=== PATIENT | female | born 1975 | race Caucasian/White ===

== ENCOUNTER → 2018-04-20 17:04 | Outpatient (CLI) | payer BC, SELFPAY ==
[2018-04-20 18:00] LABS: Absolute Lymphocyte Count 2.21 X10^3/ul (0.83-4.51); Absolute Neutrophil Count 3.9 X10^3/uL (2.0-7.7); Basophil# 0.02 X10^3/uL; Basophil% 0.3 % (0-1); Eosinophil# 0.14 X10^3/uL; Eosinophils% 2.1 % (0-5); Hematocrit 39.1 % (37-47); Hemoglobin 12.4 g/dl (12.0-15.0); Lymphocyte # 2.21 X10^3/ul (4.0); Lymphocyte % 32.8 % (19-41); Mean Corp Hgb Conc 31.7 g/gl (32-36); Mean Corpuscular Hgb 27.6 pg (27.0-32.0); Mean Corpuscular Volume 86.9 fL (81-99); Mean Platelet Vol. 9.8 fl (6.2-12.0); Monocyte# 0.49 X10^3/uL; Monocyte% 7.3 % (0-10); Neutrophil # 3.87 X10^3/uL (2.7-7.7); Neutrophil % 57.5 % (47-70); Platelet Count 297 K/mm3 (150-450); RBC Distribution Width CV 14.3 % (11.6-14.6); RBC Distribution Width SD 45.4 fl (35.1-43.9); White Blood Count 6.7 K/mm3 (4.4-11.0)
[2018-04-20 18:13] LABS: POSITIVE COUNT NO; POSITIVE DIFFERENTIAL NO; POSITIVE MORPHOLOGY NO
[2018-04-20 19:10] LABS: ALB/GLOB Ratio 0.7 RATIO (0.9-2.4); AST(SGOT) 16 U/L (15-37); Alanine Aminotransfer ALT/SGPT 24 U/L (13-56); Albumin, Serum 3.5 g/dL (3.2-5.0); Alkaline Phosphatase 70 U/L (45-117); Anion Gap 7 (5-15); BUN 15 mg/dL (7-18); Calcium,Total 8.4 mg/dL (8.5-10.1); Chloride 104 mmol/L (98-107); Creatinine, Serum 0.79 mg/dL (0.55-1.02); EST Glomerular Filtration Rate 85 mL/min (>60); Est Glom Filt Rate - Afr Amer 103 mL/min (>60); Free T3 2.5 pg/mL (2.18-3.98); Globulin 4.7 g/dL (2.2-4.2); Glucose 79 mg/dL (74-106); Potassium 3.6 mmol/L (3.5-5.1); Protein, Total 8.2 g/dL (6.4-8.2); Sodium Level 137 mmol/L (136-145); T3 Uptake 30 % (30-39); T4 Free Direct 0.88 ng/dL (0.76-1.46); Thyroid Stim Hormone (TSH) 2.06 uIU/mL (0.358-3.74)
== END ==
PROVIDERS: Nurse Practitioner Adult Health; Family Provider Family Medicine; PCP Family Medicine; Visit Provider Family Medicine
DX: R53.83 Other fatigue (principal)
CPT/HCPCS: 36415; 80053; 84432; 84439; 84443; 84479; 84481; 85025; 86800

== ENCOUNTER → 2018-05-29 09:09 | Outpatient (CLI) | payer BC, SELFPAY ==
--- NOTE | 2018-05-29 | BI_ITS ---
MAMMOGRAPHY - BILATERAL SCREENING REASON FOR EXAM: Female, 42 years old. Routine annual screening examination. PERTINENT HISTORY: Grandmother with breast cancer. TECHNIQUE: Digital bilateral breast chas (3D mammographic acquisition) in the CC and MLO projections. 2-D mediolateral oblique (MLO) and craniocaudad (CC) views of both breasts were obtained. CAD: Full Field Digital Mammography with Computer Added Detection was performed. COMPARISON: Comparison is made with prior study dated April 16, 2017 and July 22, 2013. FINDINGS: Breast Composition: The breasts are almost entirely fatty. There are no dominant masses or suspicious calcifications. No other significant abnormalities are identified. There has been no significant change since the prior study. BI/SCREENING MAMM (CAD), BILAT IMPRESSION: Stable bilateral screening mammogram. Yearly follow-up mammogram recommended. (A) ASSESSMENT CATEGORY: BIRADS Category 1: Negative. A letter regarding these results will be sent to the patient by the facility within 30 days. Approximately 10% of breast cancers are not detected by mammography. A normal mammogram should not delay biopsy of a clinically suspicious abnormality. [id number] Electronically Signed: Jered Muniz MD at 9:45 EST Tel [phone], Service support ,
--- OUTSIDE RECORDS SUMMARY | 2018-07-23 19:15 | XMS RPT_ITS ---
:1975 Author Organization [facility] Care Team Providers Name Role Phone Venkat Jose Attending Unavailable Venkat Jose Primary Care Unavailable Destini Dee Attending Unavailable Destini Dee Referring Unavailable Venkat Jose Primary Care Unavailable PROBLEMS PROBLEMS DATE TYPE CONDITION / CODE ATTENDING STATUS SOURCE 05/11/2018 Unknown R53.83 - Other Venkat Jose Active [place] [facility] R53.83(ICD-10) Hospital Repository PROCEDURES PROCEDURES No Procedure Records FoundRESULTS RESULTS SCREENING MAMM (CAD), Observed: 05/29/2018 Status: F Source: [place] BIL 9:12 AM [facility] Imaging Services [address] [place] [address] SCREENING MAMM (CAD), BILAT MR#: [id number] Acct: [id number] Name: VICKI CASTELLON Rep #: [id number] : 1975 F 42 From: Jered Muniz MD PCP: Venkat Jose MD Status: REG CLI Study: SCREENING MAMM (CAD), BILAT Date of Exam: 05/29/18 Exam# [id number] Ordering Dr: Destini Dee MD MAMMOGRAPHY - BILATERAL SCREENING REASON FOR EXAM: Female, 42 years old. Routine annual screening examination. PERTINENT HISTORY: Grandmother with breast cancer. TECHNIQUE: Digital bilateral breast chas (3D mammographic acquisition) in the CC and MLO projections. 2-D mediolateral oblique (MLO) and craniocaudad (CC) views of both breasts were obtained. CAD: Full Field Digital Mammography with Computer Added Detection was performed. COMPARISON: Comparison is made with prior study dated April 16, 2017 and July 22, 2013. FINDINGS: Breast Composition: The breasts are almost entirely fatty. There are no dominant masses or suspicious calcifications. No other significant abnormalities are identified. There has been no significant change since the prior study. BI/SCREENING MAMM (CAD), BILAT IMPRESSION: Stable bilateral screening mammogram. Yearly follow-up mammogram recommended. (A) ASSESSMENT CATEGORY: BIRADS Category 1: Negative. A letter regarding these results will be sent to the patient by the facility within 30 days. Approximately 10% of breast cancers are not detected by mammography. A normal mammogram should not delay biopsy of a clinically suspicious abnormality. [id number] Electronically Signed: Jered Muniz MD at 9:45 EST Tel [phone], Service support , CC: Destini Dee MD; Venkat Jose MD [facility] Supervisor: Signed THYROGLOBULIN W/ANTI-TG Collected: 04/20/2018 Status: F Source: [place] AB 5:10 PM [facility] TYPE CODE TESTS RESULT OUT OF RANGE REFERENCE UNITS LAB L3300.7025 Normal ANTI-TG AB Result Comment: TEST RESULT LIMITS TgAb+Thyroglobulin,LAURA or ALANNA Thyroglobulin Antibody <1.0 IU/mL 0.0 - 0.9 Thyroglobulin Antibody measured by Scar Bolivar Methodology. Thyroglobulin by LAURA 38.5 ng/mL 1.5 - 38.5 Comment: According to the National Academy of Clinical Biochemistry, the reference interval for Thyroglobulin (TG) should be related to euthyroid patients and not for patients who underwent thyroidectomy. TG reference intervals for these patients depend on the residual mass of the thyroid tissue left after surgery. Establishing a post-operative baseline is recommended. The assay limit of quantitation is 0.1 ng/mL Thyroglobulin measured by Scar Boliv[facility] Immunometric Assay [facility] ORIGINAL REPORT ON FILE IN LAB CONTAINS ADDITIONAL TEST SITE INFORMATION. Performed By: #### L3300.6820 #### [facility] (refer to report for specific site) refer to report for address and phone number MISCELLANEOUS LAB Collected: 04/20/2018 Status: F Source: [place] PROCEDURE 5:10 PM [facility] Order Comment: Comments: [id number] LIVER KIDNEY MICROSOMAL ANTIBODIES Test(s) Ordered: [id number] LIVER KIDNEY MICROSOMAL ANTIBODIES TYPE CODE TESTS RESULT OUT OF RANGE REFERENCE UNITS LAB L801.1541 Normal [facility] [place] Result Comment: TEST RESULT LIMITS Liver-Kidney Microsomal Ab <1.0 Units 0.0 - 20.0 Negative 0.0 - 20.0 Equivocal 20.1 - 24.9 Positive >24.9 LKM type 1 antibodies are detected in patients with autoimmune hepatitis type 2 and in up to 8% of patients with chronic HCV infection. [facility]FOR[facility] AT [facility]. ORIGINAL REPORT ON FILE IN LAB CONTAINS ADDITIONAL TEST SITE INFORMATION. Performed By: #### L801.1541 #### [facility] [place], [id number] CBC W/DIFF, AUTOMATED Collected: 04/20/2018 Status: F Source: [place] 5:06 PM [facility] TYPE CODE TESTS RESULT OUT OF RANGE REFERENCE UNITS LAB L100.1000 4.4-11.0 K/mm3 Normal WBC 6.7 LAB L100.1200 4.2-5.4 M/mm3 Normal RBC 4.50 LAB L100.1300 12.0-15.0 g/dl Normal HGB 12.4 LAB L100.1400 37-47 % Normal HCT 39.1 LAB L100.1500 81-99 fL Normal MCV 86.9 LAB L100.1600 27.0-32.0 pg Normal MCH 27.6 LAB L100.1700 32-36 g/gl Low MCHC 31.7 LAB L100.1810 11.6-14.6 % Normal RDW CV 14.3 LAB L100.1820 35.1-43.9 fl High RDW SD 45.4 LAB L100.1900 150-450 K/mm3 Normal PLT 297 LAB L100.2000 6.2-12.0 fl Normal MPV 9.8 LAB L100.2100 47-70 % Normal NEUT% 57.5 LAB L100.2200 19-41 % Normal LY% 32.8 LAB L100.2300 0-10 % Normal MONO% 7.3 LAB L100.2400 0-5 % Normal EO% 2.1 LAB L100.2500 0-1 % Normal BASO% 0.3 LAB L100.2550 0.0-0.9 % Normal IM GRAN % 0.000 Result Comment: IG% - Immature Granulocytes (promyelocytes, myelocytes and metamyelocytes) > 1% indicates that a LEFT SHIFT is Present. LAB L100.2620 2.0-7.7 X10 3/uL Normal Absolute Neut 3.9 LAB L100.2720 0.83-4.51 X10 3/ul Normal Absolute Lymph 2.21 Performed By: #### L100.0100, L500.4050, L501.71899, L501.9110, L501.9520, L506.0400 #### [facility] [address] [place], [address] COMPREHENSIVE METABOLIC Collected: 04/20/2018 Status: F Source: [place] GOMEZ 5:06 PM [facility] Order Comment: Comments: [id number] LIVER KIDNEY MICROSOMAL ANTIBODIES TYPE CODE TESTS RESULT OUT OF RANGE REFERENCE UNITS LAB L501.0100 74-106 mg/dL Normal GLU 79 Result Comment: Please note revised GLUCOSE reference range effective 2017. LAB L501.1000 7-18 mg/dL Normal BUN 15 LAB L501.1100 0.55-1.02 mg/dL Normal CREAT,SERUM 0.79 Result Comment: The validity of the calculated GFR AND GFRAA in patients over 70 years has not been determined. Clinical correlation is essential. LAB L501.1110 >60 mL/min Normal EST GFR 85 Result Comment: Non- GFR Calc LAB L501.1115 >60 mL/min Normal EST GFR - AA 103 Result Comment: GFR Calc LAB L501.1300 10-20 RATIO Normal BUN/CRE 19.0 LAB L501.1500 6.4-8.2 g/dL T Normal PROT 8.2 LAB L501.1800 3.2-5.0 g/dL Normal ALB 3.5 LAB L501.1950 2.2-4.2 g/dL High GLOB 4.7 LAB L501.2000 0.9-2.4 RATIO Low A/G 0.7 LAB L501.2200 8.5-10.1 mg/dL Low CA 8.4 LAB L501.4100 15-37 U/L Normal AST 16 LAB L501.4305 45-117 U/L Normal ALK P 70 LAB L501.4405 13-56 U/L Normal ALT 24 LAB L501.4600 0.20-1.00 mg/dL T Normal BILI 0.20 LAB L501.5300 136-145 mmol/L NA Normal 137 LAB L501.5600 3.5-5.1 mmol/L K Normal 3.6 LAB L501.5900 98-107 mmol/L CL Normal 104 LAB L501.6100 21.0-32.0 mmol/L Normal CO2 26.0 LAB L501.6200 5-15 Normal GAP 7 Performed By: #### L100.0100, L500.4050, L501.71642, L501.9195, L501.9520, L506.0400 #### [facility] [address] [place], [place], [id number] FREE T3 Collected: 04/20/2018 Status: F Source: [place] 5:06 PM [facility] Order Comment: Comments: [id number] LIVER KIDNEY MICROSOMAL ANTIBODIES TYPE CODE TESTS RESULT OUT OF RANGE REFERENCE UNITS LAB L501.14769 2.18-3.98 pg/mL Normal FREE T3 2.5 Performed By: #### L100.0100, L500.4050, L501.15087, L501.9195, L501.9520, L506.0400 #### [facility] [place], [place], [id number] T3 UPTAKE Collected: 04/20/2018 Status: F Source: [place] 5:06 PM [facility] Order Comment: Comments: [id number] LIVER KIDNEY MICROSOMAL ANTIBODIES TYPE CODE TESTS RESULT OUT OF RANGE REFERENCE UNITS LAB L501.9210 30-39 % 30 Normal T3 UPTAKE LAB L501.9410 1.4-4.5 Test Normal T7 (FTI) not performed Performed By: #### L100.0100, L500.4050, L501.36195, L501.9195, L501.9520, L506.0400 #### [facility] [place], [place], [address] THYROID STIM HORMONE Collected: 04/20/2018 Status: F Source: [place] (TSH) 5:06 PM [facility] Order Comment: Comments: [id number] LIVER KIDNEY MICROSOMAL ANTIBODIES TYPE CODE TESTS RESULT OUT OF RANGE REFERENCE UNITS LAB L501.9520 0.358-3.74 uIU/mL Normal TSH 2.06 Performed By: #### L100.0100, L500.4050, L501.31545, L501.9195, L501.9520, L506.0400 #### [facility] [address] [facility] [place], [address] T4 FREE DIRECT Collected: 04/20/2018 Status: F Source: [place] 5:06 PM [facility] Order Comment: Comments: [id number] LIVER KIDNEY MICROSOMAL ANTIBODIES TYPE CODE TESTS RESULT OUT OF RANGE REFERENCE UNITS LAB L506.0400 0.76-1.46 ng/dL Normal T4 FREE 0.88 DIRECT Performed By: #### L100.0100, L500.4050, L501.19802, L501.9195, L501.9520, L506.0400 #### [place] [facility] [address] [place], [address] PROGRESS Observed: 11/19/2017 Status: COMPLETED Source: [place] 6:38 PM [facility] [place] REPOS[facility]ORY HNO ID: [id number] Author: Alvaro Medel) [place] Service: (none) Author Type: Physician Newspaper Photojournalist Type: Progress Notes Filed: 11/19/2017 6:46 PM Note Text: Subjective HPI Pt presents with a dog bite. She was trying to separate her two Corgi dogs from fighting when one inadvertently bit her. Her dogs are up to date on immunizations. She states the one dog actually killed the other one. She has wound on her right index finger. She is not sure when her last tetnus was.. Review of Systems Musculoskeletal: Dog bite right index finger All other systems reviewed and are negative. PAST MEDICAL HISTORY Diagnosis Date - Depression Current Outpatient Prescriptions: amoxicillin-clavulanic acid (AUGMENTIN) 875-125 mg per tablet Take 1 tablet by mouth twice daily for 10 days. Disp: 20 tablet Rfl: 0 naproxen (NAPROSYN) 500 mg tablet Take 500 mg by mouth twice daily with meals. Disp: Rfl: No current facility-administered medications for this visit. PAST SURGICAL HISTORY Procedure Laterality Date - DELIVERY ONLY 2010 , low cervical (x2) - EXTRACTION ERUPTED TOOTH/EXR - PAST SURGICAL HISTORY OF mole excised from left axilla - TUBAL LIGATION,,ABD OR VAG. 2010 FAMILY HISTORY Problem Relation Age of Onset - Heart Father - hydrocephalus [Other] [OTHER] Mother Social History Substance Use Topics - Smoking status: Never Smoker - Smokeless tobacco: Never Used - Alcohol use Yes Comment: rare 1 per month BP 118/62 Pulse 78 Temp 37.4 ?C (99.4 ?F) (Left Tympanic) Resp 16 Wt 130.2 kg (287 lb) BMI 43.00 kg/m? Objective Physical Exam Constitutional: She is oriented to person, place, and time and well-developed, well-nourished, and in no distress. HENT: Head: Normocephalic and atraumatic. Cardiovascular: Normal rate, regular rhythm and normal heart sounds. Pulmonary/Chest: Effort normal and breath sounds normal. Musculoskeletal: Exam of the right index finger reveals a puncture wound on the burgess side of the finger on the middle phalanx and three puncture wounds on the middle phalanx on the dorsum. 2 of these are on the middle phalanx and one on the distal phalanx. No active bleeding. She has FROM of the finger against resistance. Neurological: She is alert and oriented to person, place, and time. Skin: Skin is warm and dry. Psychiatric: Judgment normal. tearful Nursing note and vitals reviewed. ASSESSMENT/PLAN: 1. Dog bite, initial encounter - ICD9: 879.8, E906.0, ICD10: W54.0XXA Pt wounds were cleansed with hibacleanse and normal saline irrigation. Covered with bacitracin and nonstick dressing. Her tdap was updated. I will start her on Augmentin and she was given warning signs for infection. She also filled out a Dog bite form. Discussed with patient concerning symptoms to go to the emergency department or follow up here. Pt agreeable with this plan. Alvaro Godwin PA-C CNOV Observed: 11/19/2017 Status: COMPLETED Source: [place] 5:45 PM [facility] Office Visit ([facility]) VICKI CASTELLON ([id number]) 1975 F Date Time Provider Department 11/19/17 5:45 PM ALVARO GODWIN) [facility] During your visit today, we recorded the following information about you: Temperature Pulse Respiration Blood pressure 99.4 degrees 78/minute 16/minute 118/62 Weight 130.2 kg Alvaro Godwin PA-C 11/19/2017 6:46 PM Signed Subjective HPI Pt presents with a dog bite. She was trying to separate her two Corgi dogs from fighting when one inadvertently bit her. Her dogs are up to date on immunizations. She states the one dog actually killed the other one. She has wound on her right index finger. She is not sure when her last tetnus was.. Review of Systems Musculoskeletal: Dog bite right index finger All other systems reviewed and are negative. PAST MEDICAL HISTORY Diagnosis Date - Depression Current Outpatient Prescriptions: amoxicillin-clavulanic acid (AUGMENTIN) 875-125 mg per tablet Take 1 tablet by mouth twice daily for 10 days. Disp: 20 tablet Rfl: 0 naproxen (NAPROSYN) 500 mg tablet Take 500 mg by mouth twice daily with meals. Disp: Rfl: No current facility-administered medications for this visit. PAST SURGICAL HISTORY Procedure Laterality Date - DELIVERY ONLY 2009 , low cervical (x2) - EXTRACTION ERUPTED TOOTH/EXR - PAST SURGICAL HISTORY OF mole excised from left axilla - TUBAL LIGATION,,ABD OR VAG. 2010 FAMILY HISTORY Problem Relation Age of Onset - Heart Father - hydrocephalus [Other] [OTHER] Mother Social History Substance Use Topics - Smoking status: Never Smoker - Smokeless tobacco: Never Used - Alcohol use Yes Comment: rare 1 per month BP 118/62 Pulse 78 Temp 37.4 ?C (99.4 ?F) (Left Tympanic) Resp 16 Wt 130.2 kg (287 lb) BMI 43.00 kg/m? Objective Physical Exam Constitutional: She is oriented to person, place, and time and well-developed, well-nourished, and in no distress. HENT: Head: Normocephalic and atraumatic. Cardiovascular: Normal rate, regular rhythm and normal heart sounds. Pulmonary/Chest: Effort normal and breath sounds normal. Musculoskeletal: Exam of the right index finger reveals a puncture wound on the burgess side of the finger on the middle phalanx and three puncture wounds on the middle phalanx on the dorsum. 2 of these are on the middle phalanx and one on the distal phalanx. No active bleeding. She has FROM of the finger against resistance. Neurological: She is alert and oriented to person, place, and time. Skin: Skin is warm and dry. Psychiatric: Judgment normal. tearful Nursing note and vitals reviewed. ASSESSMENT/PLAN: 1. Dog bite, initial encounter - ICD9: 879.8, E906.0, ICD10: W54.0XXA Pt wounds were cleansed with hibacleanse and normal saline irrigation. Covered with bacitracin and nonstick dressing. Her tdap was updated. I will start her on Augmentin and she was given warning signs for infection. She also filled out a Dog bite form. Discussed with patient concerning symptoms to go to the emergency department or follow up here. Pt agreeable with this plan. Alvaro Godwin PA-C Referring Provider: SELF [200] Allergies As of Date: 11/19/2017 Noted Allergy Reaction ANCEF (CEFAZOLIN SODIUM) 03/04/2012 4 - Hives Date Reviewed: 11/19/2017 Reviewed by: Amber De Santiago LPN - Fully Assessed Reason for Visit: Dog Bite [28164] Cmt: x 1 hour right hand swelling, pain and limited range of motion after dog bite right hand Primary Visit Diagnosis:Dog bite, initial encounter [W54.0XXA] Order(s):amoxicillin-clavulanic acid (AUGMENTIN) 875-125 mg per tabletTake 1 tablet by mouth twice daily for 10 days.Disp: 20 tabletRfl: 0 TDAP VACCINE AGE 7+ IM [[id number]] Order #: [id number] Prescriptions as of 11/19/2017 Sig: AMOXICILLIN 875 MG-POTASSIUM * Take 1 tablet by mouth twice * NAPROXEN 500 MG TABLET Take 500 mg by mouth twice da* Problem List As Of Date 11/19/2017 Noted Resolved Decreased libido [R68.82] INVALID FOR* Obesity, unspecified [E66.9] INVALID FOR* Other malaise and fatigue [R53.81, R53.83] INVALID FOR* Anxiety state, unspecified [F41.1] INVALID FOR* Premenstrual tension syndromes [N94.3] INVALID FOR* Depressive disorder, not elsewhere classified [*INVALID FOR* Prescriptions ordered this encounter Disp Refills Start End AMOXICILLIN 875 MG-POTASSIUM CLAVULA* 20 t* 0 11/19/2017 11/29/2017 Route: ORAL Sig: Take 1 tablet by mouth twice daily for 10 days. Encounter Status:Closed by ALVARO GODWIN PA-C on 11/19/17 ALLERGIES ALLERGIES DATE TYPE / CODE NAME / CODE REACTION SEVERITY SOURCE 11/01/2016 Drug cefazolin/[id number] Swelling Unknown [facility] Allergy/416 4841(RXNORM) Hospital 369099(SNOM Repository ED CT) 03/04/2012 DRUG CEFAZOLIN SODIUM HIVES [facility] INGREDI/[address] 169074(SNOM Repository ED CT) ENCOUNTERS ENCOUNTERS ADMIT/DISCHARGE ACCOUNT ADMITTING ENCOUNTER LOCATION SOURCE NUMBER CLASS 05/29/2018 [id number] [facility] ing:OPBI Repository 04/20/2018 [id number] [facility] ing:MFPLAB Repository 11/19/2017/11/21/[id number] Repository PAYERS PAYERS ENCOUNTER GUARANTOR PAYER SUBSCRIBER SOURCE 05/29/2018 VICKI C Primary VICKI C [place] [id number] Insurance:ANTHEMPolic SANDERSDOB: Community CEDAR y [place]: [id number] [id number] Repository 48956Yqf: (330) Date:3023-07-07OL [phone] () [address] [place] [address] 53099LU: 05/29/2018 Secondary NOT GIVENUNK [place] Insurance:SELF PAY [facility] Number: Effective Repository Date:2018-04-19 04/20/2018 VICKI C Primary VICKI C [place] [id number] Insurance:ANTHEMPolic SANDERSDOB: Community CEDAR y [place]: [id number] [id number] Repository [address]Vvr: (330) Date:8684-53-35SY [phone] () [id number] [place] [address] 14398LL: 04/20/2018 Secondary NOT GIVENUNK [place] Insurance:SELF PAY [facility] Number: Effective Repository Date:2018-04-20
== END ==
PROVIDERS: Family Provider Family Medicine; PCP Family Medicine; Referring Provider Obstetrics & Gynecology; Visit Provider Obstetrics & Gynecology
DX: Z12.31 Encounter for screening mammogram for malignant neoplasm of breast (principal)
CPT/HCPCS: 77063; 77067

== ENCOUNTER → 2018-08-03 17:45 | Outpatient (CLI) | payer BC, SELFPAY ==
--- NOTE | 2018-08-03 18:15 | MRI_ITS ---
STUDY: MRI BRAIN WITHOUT CONTRAST REASON FOR EXAM: Female, 42 years old. Chronic increasing headaches TECHNIQUE: Standardized multiplanar fat and water weighted pulse sequences were obtained. COMPARISON: None. FINDINGS: Normal size of the ventricles and extra-axial spaces for the patient's age. Normal white matter tracts of the supratentorial brain. Normal bilateral basal ganglia. Normal thalami. There is no extra-axial fluid accumulation. Normal flow voids within the major intracranial circulation suggesting patency by spin echo criteria. Normal sella turcica, pituitary gland, infundibular stalk, optic chiasm and hypothalamus. Normal tectal plate and pineal gland. Normal midbrain, destinee and medulla. Normal cerebellum. Normal basal cisterns. Normal bilateral temporal bones. Normal bilateral internal auditory canals. There are punctate foci of signal dropout in the inferior frontal lobes on the gradient echo weighted imaging sequence which may be consistent with old hemorrhagic contusions. However would recommend correlation with clinical history No demonstrated orbital abnormality, within the constraints of a routine brain study. Normal visualized paranasal sinuses. Normal calvarium and skull base. Normal visualized soft tissue structures. Normal visualized upper cervical spine. MRI/Brain without Contrast IMPRESSION: Findings which may be consistent with old posttraumatic hemorrhagic contusions within the inferior frontal lobes however clinical correlation is recommended. Otherwise normal unenhanced MRI of the brain. Electronically Signed: Kelvin Garnett MD at 23:40 EST , Service support ,
== END ==
PROVIDERS: Family Provider Family Medicine; PCP Family Medicine; Referring Provider Psychiatry & Neurology Neurology; Visit Provider Psychiatry & Neurology Neurology
DX: R51 Headache (principal)
CPT/HCPCS: 70551

== ENCOUNTER → 2019-01-10 09:42 | Outpatient (CLI) | payer BC, SELFPAY ==
[2016-11-01 14:08] VITALS: BMI 43.5
== END ==
PROVIDERS: Family Provider Family Medicine; PCP Family Medicine; Visit Provider Obstetrics & Gynecology
DX: Z12.4 Encounter for screening for malignant neoplasm of cervix (principal)

== ENCOUNTER → 2019-01-22 10:05 | Outpatient (CLI) | payer BC, SELFPAY | PROVIDERS: Family Provider Family Medicine; PCP Family Medicine; Referring Provider Family Medicine; Visit Provider Family Medicine | DX: M54.5 Low back pain (principal) | CPT/HCPCS: 87086; 87088 ==

== ENCOUNTER → 2019-04-11 13:37 | Outpatient (CLI) | payer BC, SELFPAY ==
[2019-04-11 15:25] LABS: Chlamydia Trachomatis by PCR Negative (Negative); Neisserai gonorrhoeae by PCR Negative (Negative); Probe Check PASS; Sample Adequacy Control PASS; Specimen Processing Control PASS
== END ==
PROVIDERS: Obstetrics & Gynecology; Family Provider Family Medicine; PCP Family Medicine
DX: Z11.3 Encounter for screening for infections with a predominantly sexual mode of transmission (principal)
CPT/HCPCS: 87491; 87591

== ENCOUNTER → 2019-12-05 14:44 | Outpatient (CLI) | payer BC, SELFPAY ==
[2016-11-01 14:08] VITALS: BMI 43.5
[2019-12-06 09:43] LABS: Hepatitis B Surface Antibody Non-Reactive; Rubella IgG 75.3 IU/mL
[2019-12-07 23:57] LABS: Rubeola IgG Ab > 300.0 AU/mL (Immune >16.4); V-Zoster IgG (Immunity) 1853 index (Immune >165)
== END ==
PROVIDERS: PCP Family Medicine; Referring Provider Family Medicine; Visit Provider Family Medicine
DX: Z78.9 Other specified health status (principal)
CPT/HCPCS: 36415; 86706; 86735; 86762; 86765; 86787

== ENCOUNTER → 2020-01-03 | Outpatient (CLI) | payer BC, SELFPAY ==
[2016-11-01 14:08] VITALS: BMI 43.5
== END | disposition home or self-care (01) ==
LOC: LABSPEC 14:15
PROVIDERS: PCP Family Medicine; Visit Provider Family Medicine Hospice and Palliative Medicine
DX: Z11.59 Encounter for screening for other viral diseases (principal)
CPT/HCPCS: 87635; G2023; U0003

== ENCOUNTER → 2020-04-10 17:39 | Outpatient (CLI) | payer BC, SELFPAY ==
[2020-04-02 12:54] VITALS: BMI 32.7
--- NOTE | 2020-04-10 17:45 | CT_ITS ---
STUDY: CT PELVIS WITH CONTRAST REASON FOR EXAM: Female, 44 years old. LLQ PAIN, LUMP ABOVE SCAR, SHARP STABBING PAIN, HX 2 C-SECTIONS RADIATION DOSAGE (If Supplied By Facility): CTDIvol = ( 28.21 ) mGy, DLP = ( 1063.88 ) mGycm TECHNIQUE: Transaxial imaging of the pelvis was performed with oral contrast. Oral and amp; IV Readi-CAT and amp; 100mL Isovue-370 was administered intravenously. Individualized dose optimization techniques were used for this CT. COMPARISON: None. FINDINGS: The palpable abnormality corresponds to a 2.3 cm x 1.7 cm slightly spiculated nodule in the deep subcutaneous tissue overlying the left anterior pelvis. This may represent a focal area of scarring. A biopsy may be indicated for further evaluation. Normal urinary bladder. There is evidence of bilateral tubal ligation. Normal visualized small intestine. Normal visualized colon. There is no pelvic fluid. There is no pelvic lymphadenopathy or mass lesion. Normal visualized pelvic arteries. There are degenerative changes of the visualized lumbar spine. CT/Pelvis WITH IV Contrast IMPRESSION: The palpable abnormality corresponds to a 2.3 cm x 1.7 cm slightly spiculated nodule in the deep subcutaneous tissues overlying the left anterior pelvis. A biopsy may be indicated for further evaluation. Electronically Signed: Jered Muniz, at 9:33 EDT , Service support ,
== END ==
LOC: CT 17:40
PROVIDERS: PCP Family Medicine; Referring Provider Surgery; Visit Provider Surgery
DX: R10.32 Left lower quadrant pain (principal); R19.04 Left lower quadrant abdominal swelling, mass and lump
CPT/HCPCS: 72193; Q9967

== ENCOUNTER → 2020-09-18 10:01 | Outpatient (CLI) | payer BC, SELFPAY ==
[2020-04-03 07:52] VITALS: BMI 43.5
--- NOTE | 2020-09-18 10:04 | BI_ITS ---
MAMMOGRAPHY - BILATERAL SCREENING REASON FOR EXAM: Female, 45 years old. Routine annual screening examination. PERTINENT HISTORY: Grandmother with breast cancer. Aunt with breast cancer. Left lateral breast tenderness. TECHNIQUE: Digital bilateral breast roman (3D mammographic acquisition) in the CC and MLO projections. 2-D mediolateral oblique (MLO) and craniocaudad (CC) views of both breasts were obtained. CAD: Full Field Digital Mammography with Computer Added Detection was performed. COMPARISON: Comparison is made with prior study dated 05/29/2018 and 04/16/2017. FINDINGS: Breast Composition: The breasts are almost entirely fatty. There are no dominant masses or suspicious calcifications. Stable small benign-appearing bilateral axillary lymph nodes. No other significant abnormalities are identified. There has been no significant change since the prior study. BI/SCRN MAMM (CAD)W/ROMAN BILAT IMPRESSION: Stable bilateral screening mammogram. Yearly follow-up mammogram recommended. (A) ASSESSMENT CATEGORY: BIRADS Category 2: Benign. A letter regarding these results will be sent to the patient by the facility within 30 days. Approximately 10% of breast cancers are not detected by mammography. A normal mammogram should not delay biopsy of a clinically suspicious abnormality. [id number] Electronically Signed: Jered Muniz MD at 12:25 EDT , Service support ,
== END ==
PROVIDERS: PCP Family Medicine; Referring Provider Obstetrics & Gynecology; Visit Provider Obstetrics & Gynecology
DX: Z12.31 Encounter for screening mammogram for malignant neoplasm of breast (principal)
CPT/HCPCS: 77063; 77067

== ENCOUNTER → 2020-10-09 11:27 | Outpatient (CLI) | payer BC, SELFPAY ==
[2020-04-03 07:52] VITALS: BMI 43.5
[2020-10-09 15:35] LABS: Absolute Lymphocyte Count 1.59 X10^3/uL (0.83-4.51); Absolute Neutrophil Count 2.3 X10^3/uL (2.0-7.7); Basophil# 0.02 X10^3/uL; Basophil% 0.5 % (0-1); Eosinophil# 0.04 X10^3/uL; Eosinophils% 0.9 % (0-5); Hemoglobin 13.6 g/dL (12.0-15.0); Lymphocyte # 1.59 X10^3/ul (4.0); Lymphocyte % 37.5 % (19-41); Mean Corp Hgb Conc 32.4 g/dL (32-36); Mean Corpuscular Hgb 30.8 pg (27.0-32.0); Mean Platelet Vol. 10.6 fl (6.2-12.0); Monocyte# 0.33 X10^3/uL; Monocyte% 7.8 % (0-10); NRBC Flagged by Analyzer 0 % (0-5); Neutrophil # 2.25 X10^3/uL (2.7-7.7); Neutrophil % 53.1 % (47-70); Platelet Count 240 K/mm3 (150-450); RBC Distribution Width SD 42.1 fl (35.1-43.9); Red Blood Count 4.42 M/mm3 (4.2-5.4); White Blood Count 4.2 K/mm3 (4.4-11.0)
[2020-10-09 15:57] LABS: ALB/GLOB Ratio 0.9 RATIO (0.9-2.4); AST(SGOT) 17 U/L (15-37); Alanine Aminotransfer ALT/SGPT 22 U/L (13-56); Albumin, Serum 3.5 g/dL (3.2-5.0); Alkaline Phosphatase 53 U/L (45-117); Anion Gap 6 (5-15); BUN 14 mg/dL (7-18); BUN/Creat Ratio 15.5 RATIO (10-20); Calcium,Total 8.6 mg/dL (8.5-10.1); Chloride 108 mmol/L (98-107); EST Glomerular Filtration Rate 72 mL/min (>60); Est Glom Filt Rate - Afr Amer 87 mL/min (>60); Free T3 2.5 pg/mL (2.18-3.98); Glucose 70 mg/dL (74-106); Potassium 3.4 mmol/L (3.5-5.1); Protein, Total 7.5 g/dL (6.4-8.2); Sodium Level 139 mmol/L (136-145); T4 Free Direct 0.97 ng/dL (0.76-1.46); Thyroid Stim Hormone (TSH) 1.61 uIU/mL (0.358-3.74)
== END ==
PROVIDERS: PCP Family Medicine; Referring Provider Family Medicine; Visit Provider Registered Nurse
DX: F41.9 Anxiety disorder, unspecified (principal)
CPT/HCPCS: 36415; 80053; 82306; 84439; 84443; 84481; 85025

== ENCOUNTER 2020-12-21 10:51 | Day surgery (SDC) | payer BC, SELFPAY ==
[2020-04-03 07:52] VITALS: BMI 43.5
[2020-12-21] VITALS (7 sets, daily range): BP systolic 84–108; BP diastolic 53–77; PULSE 42–73; RESP 14–16; TEMP 36.5–37.3; O2SAT 98–100; BMI 34.5
--- NOTE | 2020-12-21 | MISC_PTH ---
PATIENT: VICKI CASTELLON LOC: [facility] [place] U#:[id number] AGE/SX: 45/F ROOM: RE12/21/[address]: Dr. Walker Marie MD : 1975 BED: DIS: 12/21/2020 SPEC #: [id number] RECD: 12/21/20 14:12 STATUS: PANDA REDarling #: [id number] MARQUIS: 12/21/20 00:[address]: Walker Marie DEPT: SURGICAL PATHOLOGY RECD BY: Vadim Cast ENTERED: 12/24/20 08:03 SP TYPE: MISC OTHR DR: Dr. Venkat Jose MD Tissues: Endometrial cavity Procedures: Surgery Specimen Level IV HEADER OPERATION: Excision endometrioma, left lower abdominal PRE-OP DIAGNOSIS: Endometrioma TISSUE SUBMITTED: Endometrioma MICROSCOPIC DIAGNOSIS Left lower abdominal endometrioma, excision: Consistent with endometriosis/endometrioma. LEXI:clementine 12/25/2020 MICROSCOPIC DESCRIPTION Slides are reviewed. GROSS DESCRIPTION Received in fixative is one container labeled with the patient's name and designated endometrioma. The specimen consists of an irregular fragment of yellow fatty tissue measuring 5 x 4 x 4 cm. Serial sections reveal fatty cut surfaces that are interrupted by white, fibrous streaks with punctate hemorrhage. Hall Worker sections are submitted in four cassettes. / AM:clementine 12/24/20 TC:5 CPT: 38791
[2020-12-21 11:15] LABS: Internal QC Validated? YES +Cl - CLEAR BKGD
[2020-12-21 11:19] LABS: Pregnancy, Urine Negative Negative
[2020-12-21] MEDS: Lactated Ringers 1,000 ML 100 ML IV ×2 (12:13→14:34)
[2020-12-21] MEDS: Bupivacaine Mpf 0.5% 30 ML VIAL (13:00)
--- NOTE | 2020-12-21 13:30 | PCM.OPRPT ---
Problems Associated Problem List Diagnoses (1) Endometrioma: Report of Operation Date of Procedure: 12/21/20 Pre-Operative Diagnosis: Subcutaneous endometrioma Post-Operative Diagnosis: Same Surgery/Procedure Performed:: Excision of a 5 cm subcutaneous endometrioma Surgeon: Walker Marie Type of Anesthesia: General Anesthesiologist: Michael Ford Specimen's removed: 5 cm subcutaneous endometrioma Estimated Blood Loss (mL): < 5 cc Description of Procedure: Patient was brought into the operating room. Placed in the supine position. Under excellent general endotracheal ovation abdomen was sterilely prepped and draped in the usual fashion. I used the ultrasound identified exactly where this was. I injected local in the skin. Incision was made. Electrocautery was used to remove the subcutaneous endometrioma. It was all above the fascia I did not get into the fascia whatsoever. Use electrocautery for getting the stasis. I brought the wound together with a deep layer of 2-0 Vicryl deep dermals of 3-0 Vicryl in a running 4-0 Monocryl. Steri-Strips were applied sterile dressings were applied and the patient tolerated the procedure well. Admit VTE Documentation VTE Present on Admission: No VTE Mechan Device Prophylaxis: SCD's VTE Pharm Prophylaxis ordered?: No Reason prophylaxis not ordered:: Treatment Not Indicated
--- NOTE | 2020-12-21 13:37 | DCINST_ITS ---
Discharge Instructions Follow Up Care Test Results: Test results from this visit will be discussed in further detail at your follow-up appointment, if applicable. Discharge Plan Admission Attending Provider: Walker Marie Primary Care Provider: Venkat Jose Discharge Orders/Prescriptions Prescriptions: New hydrocodone-acetaminophen [Vicodin HP] 10-300 mg tablet 1 tab PO Q6H PRN (Reason: pain) 5 Days Qty: 20 RF: 0 Continued topiramate 50 mg tablet 150 mg PO BID RF: 0 rizatriptan 10 mg tablet 10 mg PO X1 RF: 0 zinc 50 mg tablet 50 mg PO DAILY RF: 0 ascorbic acid (vitamin C) 500 mg tablet 500 mg PO DAILY RF: 0 Maximum Daily Multivitamin 18-0.4 mg tablet 1 tab PO DAILY RF: 0 bupropion HCl 100 MG tablet 450 mg PO DAILY RF: 0 apple cider vinegar 600 mg Capsule 1,200 mg PO BID RF: 0 cranberry 450 mg Tablet 900 mg PO BID RF: 0 Referrals / Follow Up: Venkat Jose MD [Primary Care Provider] - Mayra Hoffman PA-C [PHYSICIAN MUSIC EXECUTIVE] - Disposition Disposition (needs filled in before D/C Order can be placed): Home, Self Care
--- NOTE | 2020-12-21 13:41 | EX.PCM.DISCH ---
Discharge Instructions Procedure General Surgery Diet Discharge Diet: Light diet - advance as tolerated (If you have questions about your diet instructions, please talk to your doctor.) Activity Discharge Activity: May Not Drive (for 1 week or while taking narcotic pain medicine.) May shower in (days): 1 Lifting Restrictions: 10 pounds Dressing / Incision Call your doctor if your incision/area has: Continuous Slow Oozing, Sudden Increased Bleeding, Increased Pain/ Swelling, Increased Redness and Foul Smelling Discharge Call your doctor if you observe: Fever of 101 or Higher Suture Line Care: Avoid Pulling/Pushing and Avoid Pinching/Bending Additional Dressing/Incision Instructions:: Change or remove dressing in 4 days. Leave steri-strips in place for 1 week. Follow Up Care Please Follow Up With: Mayra Hoffman PA-C When: Call office to schedule an appointment to be seen in about 10 days. Test Results: Test results from this visit will be discussed in further detail at your follow-up appointment, if applicable. Discharge Plan Admission Attending Provider: Walker Marie Primary Care Provider: Venkat Jose Discharge Orders/Prescriptions Prescriptions: New hydrocodone-acetaminophen [Vicodin HP] 10-300 mg tablet 1 tab PO Q6H PRN (Reason: pain) 5 Days Qty: 20 RF: 0 Continued topiramate 50 mg tablet 150 mg PO BID RF: 0 rizatriptan 10 mg tablet 10 mg PO X1 RF: 0 zinc 50 mg tablet 50 mg PO DAILY RF: 0 ascorbic acid (vitamin C) 500 mg tablet 500 mg PO DAILY RF: 0 Maximum Daily Multivitamin 18-0.4 mg tablet 1 tab PO DAILY RF: 0 bupropion HCl 100 MG tablet 450 mg PO DAILY RF: 0 apple cider vinegar 600 mg Capsule 1,200 mg PO BID RF: 0 cranberry 450 mg Tablet 900 mg PO BID RF: 0 Referrals / Follow Up: Venkat Jose MD [Primary Care Provider] - Mayra Hoffman PA-C [PHYSICIAN MEDTRONICS TECHNICIAN] - Disposition Disposition (needs filled in before D/C Order can be placed): Home, Self Care
== END 2020-12-21 15:35 | disposition home or self-care (01) ==
LOC: SDC 10:52 → AC 10:54
PROVIDERS: Anesthesiology; PCP Family Medicine; Referring Provider Surgery; Visit Provider Surgery
PROC: (CPT 22903; principal; 2020-12-21 12:45)
DX: N80.8 Other endometriosis (principal); G43.909 Migraine, unspecified, not intractable, without status migrainosus; G47.30 Sleep apnea, unspecified; F32.9 Major depressive disorder, single episode, unspecified; F41.9 Anxiety disorder, unspecified; Z79.899 Other long term (current) drug therapy
CPT/HCPCS: 00800; 22903; 81025; 88305; J7120; J2405

== ENCOUNTER → 2021-05-08 09:17 | Outpatient (CLI) | payer BC, SELFPAY ==
[2021-05-08 11:12] LABS: Vitamin D,25 Hydroxy 34.4 ng/mL
[2021-05-08 11:24] LABS: Anion Gap 7 (5-15); BUN 15 mg/dL (7-18); BUN/Creat Ratio 15.5 RATIO (10-20); Calcium,Total 8.6 mg/dL (8.5-10.1); Chloride 110 mmol/L (98-107); Cholesterol 158 mg/dL (200); Creatinine, Serum 0.97 mg/dL (0.55-1.02); EST Glomerular Filtration Rate 66 mL/min (>60); Est Glom Filt Rate - Afr Amer 80 mL/min (>60); Glucose 83 mg/dL (74-106); High Density Lipoprotein 61 mg/dL; Potassium 3.6 mmol/L (3.5-5.1); Sodium Level 140 mmol/L (136-145); Triglycerides 38 mg/dL; Very Low Density Lipoprotein 8 mg/dL (5-40)
== END ==
PROVIDERS: PCP Family Medicine; Referring Provider Family Medicine; Visit Provider Family Medicine
DX: Z00.00 Encounter for general adult medical examination without abnormal findings (principal)
CPT/HCPCS: 36415; 80048; 80061; 82306

== ENCOUNTER → 2022-03-26 | Outpatient (CLI) | payer OTHER, SELFPAY ==
[2022-03-26 17:28] LABS: T4 Free Direct 0.88 ng/dL (0.76-1.46); Thyroid Stim Hormone (TSH) 1.55 uIU/mL (0.358-3.74)
[2022-04-03 12:29] LABS: HPV APTIMA, High Risk Negative (Negative)
== END | disposition home or self-care (01) ==
LOC: WOBLAB 15:56
PROVIDERS: PCP Family Medicine; Visit Provider Obstetrics & Gynecology
DX: Z12.4 Encounter for screening for malignant neoplasm of cervix (principal)
CPT/HCPCS: 36415; 84439; 84443; 87624; 88175; G0145

== ENCOUNTER 2022-07-18 20:16 | Emergency (ER) | payer OTHER, SELFPAY ==
[2022-07-18 20:18] VITALS: BP 128/89; PULSE 99; RESP 16; TEMP 35.8; O2SAT 99; BMI 39.2
--- NOTE | 2022-07-18 20:31 | EX.ED.DYSGE1 ---
HPI History of Present Illness Chief Complaint: Wound Narrative Narrative: Patient presents with wounds on both legs for over 2 weeks. She has seen urgent care and her PCP. She has an appoint with dermatology next week. She has no fever or chills. She has no tongue swelling or any other bulbar involvement. No difficulty swallowing. No chest pain or shortness of breath. [facility] Medical History (Updated 07/18/22 @ 20:[address] Venkat Rojas MD) Anemia Anxiety and depression Back pain CPAP (continuous positive airway pressure) dependence Hemorrhoid History of edema History of irregular heartbeat Migraine Non-smoker Sleep apnea Home Medications bupropion HCl 100 mg tablet 450 mg PO DAILY 11/01/16 [History Last Taken 12/21/20 06:45] ascorbic acid (vitamin C) 500 mg tablet 500 mg PO DAILY 04/02/20 [History Last Taken Unknown] bfyjztnqwmjk-Rd-tnnp-minerals 18 mg-0.4 mg tablet (Maximum Daily Multivitamin) 1 tab PO DAILY 04/02/20 [History Last Taken Unknown] rizatriptan 10 mg tablet 10 mg PO X1 migraines 04/02/20 [History Last Taken Unknown] topiramate 50 mg tablet 150 mg PO BID 04/02/20 [History Last Taken 12/21/20 06:45] zinc 50 mg tablet 50 mg PO DAILY 04/02/20 [History Last Taken Unknown] apple cider vinegar 600 mg capsule 1,200 mg PO BID 12/14/20 [History Last Taken Unknown] cranberry fruit 450 mg tablet (cranberry) 900 mg PO BID 12/14/20 [History Last Taken Unknown] hydrocodone 10 mg-acetaminophen 300 mg tablet (Vicodin HP) 1 tab PO Q6H PRN pain 5 days #20 tabs 12/21/20 [Rx Last Taken Unknown] sulfamethoxazole 800 mg-trimethoprim 160 mg tablet (Bactrim DS) 1 tab PO BID #10 tabs 07/18/22 [Rx Last Taken Unknown] Allergy/AdvReac Type Severity Reaction Status Date / Time cefazolin [From [facility]] Allergy Swelling Verified 12/14/20 09:17 Family History Father Sleep apnea Atrial fibrillation Aortic aneurysm Mother Hydrocephalus Surgical History History of 2 sections History of local excision of skin lesion History of wisdom tooth extraction Social History (Updated 04/03/20 @ 07:[address] Walker Marie MD) Smoking Status: Never smoker ROS ROS ED ROS Narrative Past medical history: Reviewed Medications: Reviewed Social history: Noncontributory Review of systems: General: No fever ENT: Lip vesicles as in HPI. Neck: No neck pain Cardiovascular: No chest pain Respiratory: No shortness of breath or cough Gastrointestinal: No nausea or vomiting EXAM Physical Exam Narrative Exam Narrative: Physical exam General: Well nourished, Well developed, No Acute Distress Head: Normocephalic, Atraumatic Eyes: Conjunctiva not pale ENT: Very small punctate blisters quite a few on the upper and lower lips, there is some erythema. Normal tongue normal soft palate normal voice. No mucosal involvement. Neck: Supple, Nontender, No lymphadenopathy Cardiovascular: Regular rate, Regular rhythm Respiratory: No distress, CTA bilaterally Neurological: No facial droop Const Vital Signs: 07/18/22 20:18 07/18/22 20:18 Temperature 96.5 F L 96.5 F L Temperature Source Temporal Temporal Pulse Rate 99 99 Respiratory Rate 16 16 Blood Pressure 128/89 H 128/89 H Blood Pressure Mean 102 102 Pulse Ox 99 99 Oxygen Delivery Method Room Air Room Air MDM MDM MDM Narrative Medical decision making narrative: I discussed the patient with her who is at bedside and confirms the history of present illness. At this time she has a lip rash that does not appear dangerous to the respiratory system. Unsure about the etiology but this could be impetigo or slight infection therefore I will treat with antibiotics. She has an appoint with dermatology next week and she is to keep it. Discharge Plan Triage Chief Complaint: Wound ED Provider: Venkat Rojas Dx/Rx/DC Orders Clinical Impression: Blister of lip with infection, Lip swelling Prescriptions: New sulfamethoxazole-trimethoprim [Bactrim DS] 800-160 mg tablet 1 tab PO BID Qty: 10 0RF No Action topiramate 50 mg tablet 150 mg PO BID Label Comments: TAKE 3 TABLETS TWICE DAILY rizatriptan 10 mg tablet 10 mg PO X1 Label Comments: TAKE 1 TABLET BY MOUTH at onset of migraine NEEDED. May repeat 2nd dose in 2 (TWO) hours. No more than 2 (TWO) doses in 24 hours. zinc 50 mg tablet 50 mg PO DAILY ascorbic acid (vitamin C) 500 mg tablet 500 mg PO DAILY Maximum Daily Multivitamin 18-0.4 mg tablet 1 tab PO DAILY bupropion HCl 100 MG tablet 450 mg PO DAILY apple cider vinegar 600 mg Capsule 1,200 mg PO BID cranberry 450 mg Tablet 900 mg PO BID hydrocodone-acetaminophen [Vicodin HP] 10-300 mg tablet 1 tab PO Q6H PRN (Reason: pain) 5 Days Qty: 20 0RF Primary Care Provider: Venkat Jose Referrals: Venkat Jose MD [Primary Care Provider] - 3-5 Days Activity Restrictions/Additional Instructions: If your lips become more swollen or if you lose her voice or its difficult to swallow return to the ED right away Disposition Disposition: Home, Self Care
[2022-07-18] MEDS: Smz/Tmp Ds Tablet 1 TABLET PO (20:34)
== END 2022-07-18 20:48 | disposition home or self-care (01) ==
PROVIDERS: Emergency Provider Emergency Medicine; PCP Family Medicine; Visit Provider Emergency Medicine
DX: S00.521A Blister (nonthermal) of lip, initial encounter (principal); X58.XXXA Exposure to other specified factors, initial encounter
CPT/HCPCS: 99281; 99283

== ENCOUNTER → 2023-02-13 | Outpatient (CLI) | payer OTHER, SELFPAY ==
--- NOTE | 2023-02-13 15:28 | RAD_ITS ---
HISTORY: PAIN. TECHNIQUE: XR Foot Min 3 Views. COMPARISON: None. FINDINGS: BONES : No acute fracture or cortical erosion identified. JOINTS: No dislocation. Joint spaces maintained. SOFT TISSUES: No radiopaque foreign body seen. RAD/Foot min 3 Views IMPRESSION: No acute fracture or dislocation identified in the right foot. Electronically Signed: Geeta Mckinley MD at 9:49 EDT ,
[2023-02-13 17:43] LABS: Uric Acid 4.6 mg/dL (2.6-6.0)
== END | disposition home or self-care (01) ==
PROVIDERS: PCP Family Medicine; Referring Provider Family Medicine; Visit Provider Family Medicine
DX: M79.671 Pain in right foot (principal)
CPT/HCPCS: 36415; 73630; 84550

== ENCOUNTER → 2023-08-19 | Outpatient (CLI) | payer OTHER, SELFPAY ==
[2023-08-19 18:01] LABS: Anion Gap 5 (5-15); BUN 18 mg/dL (7-18); BUN/Creat Ratio 17.3 RATIO (10-20); Calcium,Total 9.1 mg/dL (8.5-10.1); Chloride 111 mmol/L (98-107); Cholesterol 179 mg/dL (200); Creatinine, Serum 1.04 mg/dL (0.55-1.02); EST Glomerular Filtration Rate 60 mL/min (>60); Est Glom Filt Rate - Afr Amer 73 mL/min (>60); Glucose 88 mg/dL (74-106); High Density Lipoprotein 67 mg/dL; Potassium 3.4 mmol/L (3.5-5.1); Sodium Level 141 mmol/L (136-145); Thyroid Stim Hormone (TSH) 1.95 uIU/mL (0.358-3.74); Triglycerides 36 mg/dL; Very Low Density Lipoprotein 7 mg/dL (5-40)
== END | disposition home or self-care (01) ==
LOC: MFPLAB 15:13
PROVIDERS: PCP Family Medicine; Visit Provider Family Medicine
DX: Z00.00 Encounter for general adult medical examination without abnormal findings (principal)
CPT/HCPCS: 36415; 80048; 80061; 84443

== ENCOUNTER → 2024-02-22 | Outpatient (CLI) | payer OTHER, SELFPAY ==
--- NOTE | 2024-02-22 08:10 | MRI_ITS ---
STUDY: MRI LUMBAR SPINE WITHOUT CONTRAST REASON FOR EXAM: Female, 48 years old. Lower back pain, abnormal xray TECHNIQUE: Standardized fat and water weighted pulse sequences were obtained in the sagittal and axial planes. COMPARISON: Lumbar spine radiograph January 27, 2024. FINDINGS: T12-L1: Normal endplates. Normal disc height, hydration and morphology. Normal bilateral facet joints. Normal central canal and bilateral lateral recesses. Normal bilateral intervertebral neural foramina. Normal lumbar lordosis. There is no substantial scoliosis. Normal conus medullaris that terminates at the L2 level. L1-2: Normal endplates. Normal disc height, hydration and morphology. Normal bilateral facet joints. Normal central canal and bilateral lateral recesses. Normal bilateral intervertebral neural foramina. L2-3: Spondylitic endplates. Normal disc height, hydration and morphology. Normal bilateral facet joints. Normal central canal and bilateral lateral recesses. Normal bilateral intervertebral neural foramina. L3-4: Spondylotic endplates. Normal disc height, hydration and morphology. Hypertrophic bilateral facet joints. Mild trefoil type narrowing central canal and bilateral lateral recesses. Normal bilateral intervertebral neural foramina. L4-5: Spondylitic endplates. Normal disc height, hydration and morphology. Spondylitic bilateral facet joints. Normal central canal and bilateral lateral recesses. Moderate narrowing bilateral intervertebral neural foramina. L5-S1: Normal endplates. Normal disc height, hydration and morphology. Normal bilateral facet joints. Normal central canal and bilateral lateral recesses. Left lateral broad-based disc marginal osteophyte and moderate narrowing intervertebral neural foramina. Normal visualized sacral ala. Normal visualized paraspinous soft tissue structures. MRI/Spine Lumbar (Routine) IMPRESSION: Multilevel neural foraminal narrowing as noted above Electronically Signed: Yo Belle MD at 23:35 EDT ,
== END | disposition home or self-care (01) ==
PROVIDERS: PCP Family Medicine; Referring Provider Family Medicine; Visit Provider Family Medicine
DX: M54.50 Low back pain, unspecified (principal); R93.7 Abnormal findings on diagnostic imaging of other parts of musculoskeletal system
CPT/HCPCS: 72148

== ENCOUNTER 2024-03-09 10:00 | Outpatient (RCR) | payer OTHER, SELFPAY ==
--- NOTE | 2024-02-04 13:48 | HP.PTEVAL_ITS ---
Patient's Visit Information Visit Information Visit Information: VICKI CASTELLON is a 48 year old F referred to Physical Therapy by Dr. Venkat Jose MD with a diagnosis of Lumbar Pain. Date of Evaluation: 02/04/24 Physical Therapist: CARY Bailey Visit Plan Frequency: 2x /Week Duration: 2 Months Plan: 2X/ week for 8 weeks for neutral spine core stability starting in supine and progressing to sitting/standing. HEP: Pelvic Tilt and Pelvic Tilt with hip march Subjective Subjective: Pt has some back pain. She injured her back 5-6 years ago and then it went away and it would come and go and now the past few month it is chronic and down B legs. She had an x-ray and showed DDD, anteriololithesis, mild scoliosis She is going to get an MRI. Sitting or standing too long increases her pain. If she is charting too long to standing in the kitchen too long etc. She has no leg weakness and no N&T. She just has a dull ache in LB and legs. Pain Back pain: Pain Intensity (Out of 10): 0 B leg pain: Pain Intensity (Out of 10): 0 Objective Objective: Gait: Walks with shorter stride length Trunk AROM: flex 50%, Ext 25%, SB B 50%, Rot B 75% Pt is able to walk on heels and toes Patella DTR's LE MMT: R hip flex 8.7 and L 8.3 R knee ext 13.7 and 12.6 R knee flex 12.9 and L 11.3 Good B HS and B piriformis length Able to do 3/4 normal ROM bridge Prone lying no pain Prone to EBONI some increase pain in back but does not stay when she moves back flat PT hold 3 seconds X 10 no pain (has to concentrate on relaxing neck) Balance/Special Test Scores Oswestry Low Back Score: 10 Goals Goal 1:: I HEP Goal Time Frame: 6-8 Weeks Goal 2:: Be able to stand and chart or work in the kitchen for longer periods of time before she has back pain Goal Time Frame: 6-8 Weeks Goal 3:: Be able to sit for longer periods of time without pain Goal Time Frame: 6-8 Weeks Goal 4:: Increase pain free trunk AROM (at the time of the eval: Trunk AROM: flex 50%, Ext 25%, SB B 50%, Rot B 75%). Goal Time Frame: 6-8 Weeks Rehabilitation Potential Rehabilitation Potential: Good Anticipated Interventions Patient/Client Instruction: Educate patient on: Condition and Plan of Care For the Purpose of:: To decrease pain, To increase ROM, To improve nutrient delivery to tissue, To improve muscle performance and motor function, To improve ability to perform ADL's, To increase tolerance to activity/condition/position, To improve performance and independence with ADL's, To decrease level of supervision to perform tasks, To improve ability of physical actions for home/community/work/leisure, To improve gait and locomotor functions, To improve health of tissue, To decrease soft tissue restriction and To increase flexibility/ROM Therapeutic Exercise to Include: Strength training, Endurance training, Agility training, Postural training, Flexibilty training, Gait and locomotor training, Active ROM, Dynamic Lumbar Stabilization and Scapular Strength/Stabilization For the Purpose of:: To decrease pain, To increase ROM, To improve nutrient delivery to tissue, To improve muscle performance and motor function, To improve ability to perform ADL's, To increase tolerance to activity/condition/position, To improve performance and independence with ADL's, To decrease level of supervision to perform tasks, To improve ability of physical actions for home/community/work/leisure, To improve gait and locomotor functions, To improve health of tissue, To decrease soft tissue restriction and To increase flexibility/ROM Functional Training to Include: Gait training For the Purpose of:: To improve gait and locomotor functions Text: Thank you for the opportunity to evaluate your patient. For Medicare and Medicare HMO plans, please review the plan of care and approve it. It will need to be FAXED BACK to us at [phone] for Medicare purposes. For Medicare only, by signing this I certify the plan of care. Please let me know if there are questions or concerns regarding this plan of care. Physician Signature: Date:
--- NOTE | 2024-03-09 10:43 | HP.PTDCSUM ---
Discharge Summary D/C summary: It has been my pleasure to treat VICKI CASTELLON referred by Dr. Venkat Jose MD, with the diagnosis of Lumbar Pain for a total of 9 visit(s). Discharge Date: 03/09/24 Please see the following information for a summary of their discharge status. Subjective Subjective: Pt has had back pain for the last week and half. Pt had some leg pain yesterday. She has back pain if she moves the wrong way. She was really bad last week but better this week. Pt can sit for longer periods of time without pain. Pain Back pain: Pain Intensity (Out of 10): 0 B leg pain: Pain Intensity (Out of 10): 0 Overall Improvement % Improvement: 35 Objective Objective/Function: Trunk AROM: flex 70%, Ext 25%, SB B 75%, Rot B 75%). Goals Goal 1:: I HEP Goal Progress: Goal Met Goal 2:: Be able to stand and chart or work in the kitchen for longer periods of time before she has back pain Goal Progress: Goal Met Goal 3:: Be able to sit for longer periods of time without pain Goal Progress: Goal Met Goal 4:: Increase pain free trunk AROM (at the time of the eval: Trunk AROM: flex 50%, Ext 25%, SB B 50%, Rot B 75%). Goal Progress: Progressing Plan Plan: Pt wants to do her HEP at home. DC PT D/C Information Discharge Comments: DC PT to HEP d/c sentence: If there are questions or concerns regarding this patient's physical therapy, please feel free to call me at [phone]. Thank you for the referral of this patient. Sincerely, Maria Fernanda Salmon, MPT Balance/Gait/Functional tests Balance/Special Test Scores Oswestry Low Back Score: 4 Improvement % Improvement: 35
== END 2024-03-09 19:00 | disposition home or self-care (01) ==
LOC: PT 10:00
PROVIDERS: PCP Family Medicine; Referring Provider Family Medicine; Visit Provider Family Medicine
DX: M54.50 Low back pain, unspecified (principal)
CPT/HCPCS: 97110; 97161; 97530

== ENCOUNTER → 2024-06-01 | Outpatient (CLI) | payer OTHER, SELFPAY ==
[2024-06-01 15:21] LABS: Absolute Lymphocyte Count 2.01 X10^3/uL (0.83-4.51); Basophil# 0.03 X10^3/uL; Basophil% 0.5 % (0-1); Eosinophil# 0.07 X10^3/uL; Eosinophils% 1.1 % (0-5); Hematocrit 39.6 % (37-47); Hemoglobin 12.4 g/dL (12.0-15.0); Lymphocyte # 2.01 X10^3/ul (0.83-4.51); Lymphocyte % 30.5 % (19-41); Mean Corp Hgb Conc 31.3 g/dL (32-36); Mean Corpuscular Volume 92.5 fL (81-99); Mean Platelet Vol. 9.5 fl (6.2-12.0); Monocyte# 0.49 X10^3/uL; Monocyte% 7.4 % (0-10); NRBC Flagged by Analyzer 0 % (0-5); Neutrophil # 3.97 X10^3/uL (2.7-7.7); Neutrophil % 60.2 % (47-70); Platelet Count 423 K/mm3 (150-450); RBC Distribution Width CV 13.5 % (11.6-14.6); RBC Distribution Width SD 45.6 fl (35.1-43.9); Red Blood Count 4.28 M/mm3 (4.2-5.4); White Blood Count 6.6 K/mm3 (4.4-11.0)
[2024-06-01 19:14] LABS: Follicle Stimulating Hormone 10.7 mIU/mL
[2024-06-05 16:07] LABS: Estrogen, Total, Serum 230 pg/mL (.)
== END | disposition home or self-care (01) ==
LOC: MFPLAB 11:19
PROVIDERS: PCP Family Medicine; Referring Provider Family Medicine; Visit Provider Family Medicine
DX: N92.0 Excessive and frequent menstruation with regular cycle (principal)
CPT/HCPCS: 36415; 82672; 83001; 83002; 85025

== ENCOUNTER → 2024-09-06 | Outpatient (CLI) | payer OTHER, SELFPAY | END | disposition home or self-care (01) | LOC: LABSPEC 10:37 | PROVIDERS: PCP Family Medicine | DX: N39.0 Urinary tract infection, site not specified (principal) | CPT/HCPCS: 87077; 87086; 87088; 87186 ==

== ENCOUNTER → 2024-09-19 | Outpatient (CLI) | payer OTHER, SELFPAY | END | disposition home or self-care (01) | LOC: LABSPEC 08:38 | PROVIDERS: PCP Family Medicine; Visit Provider Nurse Practitioner Family | DX: M54.50 Low back pain, unspecified (principal) | CPT/HCPCS: 87086; 87088 ==

== ENCOUNTER → 2025-04-08 | Outpatient (CLI) | payer OTHER, SELFPAY | END | disposition home or self-care (01) | PROVIDERS: PCP Family Medicine; Referring Provider Nurse Practitioner Family; Visit Provider Nurse Practitioner Family | DX: R35.0 Frequency of micturition (principal) | CPT/HCPCS: 87086; 87088 ==

== ENCOUNTER → 2025-05-24 | Outpatient (CLI) | payer OTHER, SELFPAY ==
[2025-05-24 13:10] LABS: Cholesterol 174 mg/dL (<=200); Low Density Lipoprotein Calc. 106 mg/dL; Triglycerides 52 mg/dL; Very Low Density Lipoprotein 10 mg/dL (5-40); cholesterol:hdl ratio screen 3.04
== END | disposition home or self-care (01) ==
LOC: MFPLAB 10:24
PROVIDERS: PCP Family Medicine; Visit Provider Family Medicine
DX: E66.811 Obesity, class 1 (principal)
CPT/HCPCS: 36415; 80061